=== PATIENT | male | born 1945 | race Caucasian/White ===

== ENCOUNTER → 2016-12-05 | Outpatient (CLI) | payer OTHER, MEDICARE | LOC: BHFA 09:15 | PROVIDERS: ATTEND Internal Medicine | DX: I35.9 Nonrheumatic aortic valve disorder, unspecified (principal) ==

== ENCOUNTER → 2016-12-13 | Outpatient (CLI) | payer OTHER, MEDICARE | LOC: BHFA 10:30 | PROVIDERS: ATTEND Internal Medicine Interventional Cardiology | DX: I25.10 Atherosclerotic heart disease of native coronary artery without angina pectoris (principal) ==

== ENCOUNTER 2017-05-02 14:49 | Emergency (ER) | payer OTHER, MEDICARE ==
[2017-05-02 15:04] VITALS: BP 171/85; PULSE 73; RESP 17; TEMP 97.9; O2SAT 98
== END 2017-05-02 16:00 | disposition left against medical advice (07) ==
DX: Z53.21 Procedure and treatment not carried out due to patient leaving prior to being seen by health care provider (principal)

== ENCOUNTER 2017-05-03 12:22 | Emergency (ER) | payer OTHER, MEDICARE ==
[2017-05-03 12:34] VITALS: BP 180/75; PULSE 75; RESP 18; TEMP 97.5; O2SAT 97
--- NOTE | 2017-05-03 13:07 | EDPHY ---
H & P Stated Complaint: Bleeding from abrasion x 2 days on tongue;on Coumadin Time Seen by Provider: 05/03/17 13:06 HPI/ROS: CHIEF COMPLAINT: Superficial laceration to long tongue, uncontrolled bleeding on Coumadin HISTORY OF PRESENT ILLNESS: The patient presents to the ED with a very superficial laceration to the anterior surface of his tongue. The patient is anticoagulated for an aortic valve replacement. The patient's INR was 3.5 yesterday. The patient has tried pressure to alleviate the bleeding but has been unable to. The patient denies any lightheadedness. He denies any additional complaints. REVIEW OF SYSTEMS: A comprehensive 10 point review of systems is otherwise negative aside from elements mentioned in the history of present illness. Source: Patient Exam Limitations: No limitations - Personal History Current Tetanus Diphtheria and Acellular Pertussis (TDAP): Yes - Medical/Surgical History Hx Asthma: No Hx Chronic Respiratory Disease: No Hx Diabetes: No Hx Cardiac Disease: Yes Hx Renal Disease: No Hx Cirrhosis: No Hx Alcoholism: No Hx HIV/AIDS: No Hx Splenectomy or Spleen Trauma: No Other PMH: PSH: thoracic aortic anerism repair; aortic valve replace;. PMH: denies - Social History Smoking Status: Never smoked - Physical Exam Exam: General Appearance: Alert, no distress Head: Atraumatic Eyes: Pupils equal, round, reactive ENT, Mouth: Very small area of bleeding secondary to bleeding vein versus small artery Neck: Nontender, trachea midline Constitutional: Initial Vital Signs Temperature (C) 36.4 C 05/03/17 12:30 Heart Rate 75 05/03/17 12:30 Respiratory Rate 18 05/03/17 12:30 Blood Pressure 180/75 H 05/03/17 12:30 O2 Sat (%) 97 05/03/17 12:30 O2 Delivery Mode Room Air Allergies/Adverse Reactions: No Known Allergies Allergy (Verified 05/03/17 12:30) Home Medications: Medication Instructions Recorded Coumadin 05/02/17 Simvastatin [Zocor] 40 mg PO 05/03/17 Medical Decision Making ED Course/Re-evaluation: The area of bleeding was infiltrated with lidocaine with epinephrine at 1:18 p.m.. I had the patient apply direct pressure for 5 minutes. Re-evaluated the patient at 1:34 p.m.: Pressure has been removed. Wound is currently hemostatic. Plan for observation. No recurrent bleeding in the emergency department. Plan will be to discharge patient home. In the event of rebleeding he should apply direct pressure for 15 minutes. If he continues to bleed he is advised to return to the emergency department where a pursestring suture may be indicated. Departure - Departure Disposition: Home, Routine, Self-Care Clinical Impression: Tongue laceration Condition: Good Additional Instructions: 1. In the event of rebleeding please apply direct pressure to the top and bottom surface of the tongue. 2. Return to the ED for any return uncontrolled bleeding. Referrals: Toni Pham MD [Primary Care Provider] - As per Instructions
== END 2017-05-03 13:54 | disposition home or self-care (01) ==
DX: S01.512A Laceration without foreign body of oral cavity, initial encounter (principal); X58.XXXA Exposure to other specified factors, initial encounter; Z79.01 Long term (current) use of anticoagulants

== ENCOUNTER 2017-06-29 14:00 | Inpatient (IN) | payer OTHER, MEDICARE ==
--- NOTE | 2017-06-29 14:47 | CPEKG ---
Heart Rate: 105 RR Interval: 571 P-R Interval: 184 QRSD Interval: 114 QT Interval: 352 QTC Interval: 466 P [place]: 68 QRS [place]: -28 T Wave [place]: 69 EKG Severity - ABNORMAL ECG - EKG Impression: SINUS TACHYCARDIA EKG Impression: PROBABLE LEFT ATRIAL ABNORMALITY EKG Impression: INCOMPLETE RBBB AND LAFB Electronically Signed By: Cuco Rico 29-Jun-2017 15:03:41
--- NOTE | 2017-06-29 14:47 | CPEKG ---
Heart Rate: 105 RR Interval: 571 P-R Interval: 184 QRSD Interval: 114 QT Interval: 352 QTC Interval: 466 P [place]: 68 QRS [place]: -28 T Wave [place]: 69 EKG Severity - ABNORMAL ECG - EKG Impression: SINUS TACHYCARDIA EKG Impression: PROBABLE LEFT ATRIAL ABNORMALITY EKG Impression: INCOMPLETE RBBB AND LAFB Electronically Signed By: Cuco Rico 29-Jun-2017 15:03:41
[2017-06-29 14:49] LABS: PLATELET COUNT 158 10^3/uL (150-400)
[2017-06-29 15:00] LABS: INR 2.86 (0.83-1.16); PROTIME(PATIENT) 30.4 SEC (12.0-15.0)
--- NOTE | 2017-06-29 15:02 | EDPHY ---
H & P Time Seen by Provider: 06/29/17 14:42 HPI/ROS: CHIEF COMPLAINT: Can't move or feel left leg HISTORY OF PRESENT ILLNESS: This 71-year-old man has a [place] aortic valve prosthesis 15 years ago and is on Coumadin with an INR of 5 yesterday. He noticed some bruising on his left thigh yesterday and saw his primary care physician. At 1:00 a.m. he woke to urinate and he said his legs went out from under him and he fell down after getting out of bed. He tells me that his left leg was acutely weak and numb, and he couldn't stand on it. He was essentially on the ground until early this afternoon he was able to crawl and get a hold of a neighbor and he was ultimately brought to the ER. Here he says that he has severe weakness in his left leg and numbness. Not associated with back pain or incontinence. Not associated with headache. He has a little bit of pain but denies severe pain in the left leg with movement. Symptoms all started at 1:00 a.m.. REVIEW OF SYSTEMS: Eye: no change in vision ENT: no sore throat Cardiac: no chest pain or syncope Pulmonary: no cough or SOB Abdomen: no vomiting, diarrhea, abdominal pain. No melena or red blood per rectum. No hematemesis or coffee-ground emesis. Musculoskeletal: HPI Skin: no rash Neuro: no headache Constitutional: no fever : no urinary symptoms A comprehensive 10 point review of systems is otherwise negative aside from elements mentioned in the history of present illness. PAST MEDICAL HISTORY: Aortic valve with [place] prosthesis, on Coumadin Social history: Lives alone General Appearance: Alert and conversant, cooperative. Eyes: No scleral icterus. ENT, Mouth: Normal mucous membranes. Respiratory: Normal respiratory effort, breath sounds equal, lungs are clear to auscultation. Cardiovascular: Regular rate and rhythm. 3/6 systolic murmur, normal dorsalis pedis pulses in both feet. Gastrointestinal: Abdomen is soft and non tender. Neurological: Alert and oriented x3. Normally conversant. Face symmetric, normal strength and sensation of both upper extremities. Sensation decreased in left leg to light touch but present. Right patellar reflexes 3+ and left patellar is 1+ to 0. Toes downgoing bilaterally with no clonus. He can flex is left knee and lift his left leg off the bed but is much weaker than on his right. He can stand on his left foot. He can plantar and dorsiflex but is weaker in both directions that he has on the right. Skin: Redness around the left knee and a bruise on the medial distal portion of his left thigh. No lacerations. Musculoskeletal: Left thigh is more swollen than the left but compartments are soft. He does not have pain on pelvic compression or spinal palpation or axial loading or rotation of either hip. Normal range of motion of left knee and ankle, I can range his knee and ankle and hip without causing pain. Psychiatric: Not agitated. Emergency Department course/MDM: Patient presents with leg weakness on Coumadin after fall. Differential extensive including but not limited to subdural, spinal epidural hematoma, muscular fracture, compartment syndrome, rhabdomyolysis. Patient has focal neurologic symptoms but is not made a stroke alert with onset greater than 12 hours prior to arrival, on Coumadin with elevated INR. Dissection or vascular occlusion considered but I think unlikely since his left foot is warm and is the same temperature as his right, and he has a normal dorsalis pedis pulse. Plan noncontrast head CT, labs to include INR and CPK, x-rays of the left lower extremity, MRI of lumbar spine if valve is compatible. 1613: Discussed with [facility] neurosurgery, per [facility] radiology no MRI at this time due to uncertainty about valve compatibility. 1626: Discussed with Dr. Ivey, neurology; do head and neck CTA. 1755: Negative CTA of head and neck per Dr. Zimmerman, no large vessel occlusion. 0: Per Nilam patient has severe canal stenosis with low L4-5 foraminal narrowing as well as the dorsal fat or blood in the lower thoracic spine region. 1920: Regina to admit. 0: Colleen reviewed films, case discussed, recommends no additional spine imaging, no emergent neurosurgical intervention. 2034: Still has dorsalis pedis pulse, without reason for decreased motor and sensory, and history of aortic dissection, will do angiography with runoff. 4: on CT has Hematoma left iliacus muscle per Erasmo; discussed with Mind[facility] admitting , and [place] at this time. Likely reason for anemia. Smoking Status: Never smoked Constitutional: Initial Vital Signs Temperature (C) 36.7 C 06/29/17 14:09 Heart Rate 107 H 06/29/17 14:09 Respiratory Rate 18 06/29/17 14:09 Blood Pressure 158/80 H 06/29/17 14:09 O2 Sat (%) 97 06/29/17 14:09 O2 Delivery Mode Room Air Allergies/Adverse Reactions: No Known Allergies Allergy (Verified 05/03/17 12:30) Home Medications: Medication Instructions Recorded ALPRAZolam [Xanax 1 MG (*)] 1 mg PO HS PRN 06/29/17 Herbals/Supplements -Info Only 1 ea PO DAILY 06/29/17 Simvastatin [Zocor] 20 mg PO HS 06/29/17 Tramadol HCl 50 mg PO Q6 PRN 06/29/17 Warfarin Sodium [Coumadin 5MG (*)] 15 mg PO MOTUWETHFRSA@21 06/29/17 Warfarin Sodium [Coumadin 5MG (*)] 17.5 mg PO LARSON@2100 06/29/17 Medical Decision Making - Diagnostics EKG Interpretation: 12-lead EKG interpreted by me; official reading is in trace master. My interpretation is sinus tachycardia with incomplete right bundle branch block and left anterior fascicular block rate 105. Differential Diagnosis: includes but not limited to SDH, stroke, dissection, epidural hematoma, peripheral neuropathy Consult/Admit Bed Type: [place] [id number] - Data Points Laboratory Results: Laboratory Results 06/29/17 14:36 06/29/17 14:36 06/29/17 19:00 Patient ABO/Rh O POSITIVE Antibody Screen NEGATIVE Medications Given: Alprazolam (Xanax) 1 mg PO HS PRN PRN Reason: Anxiety, Able to Take PO Stop: 12/26/17 23:36 Last Admin: 06/30/17 20:12 Dose: 1 mg Atorvastatin Calcium (Lipitor) 10 mg PO HS SANDRINE Stop: 12/27/17 20:59 Last Admin: 06/30/17 20:05 Dose: Not Given Sodium Chloride (Ns) 1,000 mls @ 150 mls/hr IV CONT SANDRINE Stop: 12/26/17 19:59 Last Admin: 06/29/17 20:33 Dose: 1,000 mls Discontinued Medications Sodium Chloride (Ns) 1,000 mls @ 3,000 mls/hr IV ONCE ONE Stop: 06/29/17 19:15 Last Admin: 06/29/17 19:25 Dose: 1,000 mls Departure - Departure Disposition: [facility] Clinical Impression: Left leg weakness, iliacus hematoma Rhabdomyolysis Qualifiers: Rhabdomyolysis type: traumatic Encounter type: initial encounter Qualified Code (s): T79.6XXA - Traumatic ischemia of muscle, initial encounter Condition: Fair
[2017-06-29 15:56] LABS: CREATINE KINASE 6268 IU/L (0-224)
[2017-06-29] MEDS ORDERED: IOPAMIDOL (ISOVUE 370) 100 ML BTL IV ONE ×4 (17:03→20:45)
[2017-06-29] MEDS ORDERED: NS 1,000 ML IV ONE ×2 (18:56)
[2017-06-29] MEDS ORDERED: NS 1,000 ML IV SCH ×4 (20:00→22:45)
[2017-06-29] MEDS ORDERED: ONDANSETRON DISINTEGRATING 4 MG TAB PO PRN ×2 (22:38)
[2017-06-29] MEDS ORDERED: diphenhydrAMINE 25 MG CAP PO PRN ×2 (22:38)
[2017-06-29] MEDS ORDERED: ONDANSETRON 4 MG/2 ML VIAL IVP PRN ×2 (22:38)
[2017-06-29] MEDS ORDERED: HYDROCODONE/APAP 5/325 TAB PO PRN ×2 (22:38)
[2017-06-29] MEDS ORDERED: ACETAMINOPHEN 325 MG TAB PO PRN ×2 (22:38)
[2017-06-29] MEDS ORDERED: LORazepam 0.5 MG TAB PO PRN ×2 (22:38)
--- NOTE | 2017-06-29 23:40 | SOAPPROG ---
SOAP Progress Note Assessment/Plan: Assessment: 71-YEAR-OLD MALE WITH SPONTANEOUS LEFT ILIACUS RETROPERITONEAL HEMATOMA SECONDARY TO ELEVATED INR / PATIENT ON COUMADIN FOR AORTIC VALVE REPLACEMENT HE WAS SEEN BY HIS PCP AND THOUGHT THAT OF A MUSCLE TEAR EARLIER IN THE WEEK BUT HAS GOTTEN PROGRESSIVELY WEAKER IN HIS LEFT LEG UNTIL LAST NIGHT HE COLLAPSED TRYING TO WALK NO OTHER SIGNS OF INJURY OR NO HISTORY OF TRAUMA EXAM THE HEALTHY 71-YEAR-OLD MALE NO ACUTE DISTRESS HEENT WITHOUT EVIDENCE OF TRAUMA CHEST CLEAR AND SYMMETRIC AND NONTENDER COR REGULAR RHYTHM ABDOMEN SOFT BOWEL SOUNDS BUT A PALPABLE MASS IN THE LEFT LOWER QUADRANT /NO HERNIAS GENITALIA NORMAL EXTREMITIES FULL PULSES AND FULL RANGE OF MOTION FOR ALL EXTREMITIES EXCEPT THE LEFT THIGH WHICH IS WEAK NEURO EXAM IS SYMMETRIC AND PHYSIOLOGIC EXCEPT FOR 4+ OUT OF 5 HIP FLEXOR STRENGTH ON THE LEFT PSYCH EXAM IS ALERT ORIENTED AND COOPERATIVE IMPRESSION: RETROPERITONEAL HEMATOMA CAUSING PAIN IN HIS PSOAS MUSCLE AND POSSIBLE FEMORAL NERVE COMPRESSION Plan: INR REVERSAL AND IF NOT IMPROVED HE MAY NEED RETROPERITONEAL HEMATOMA DRAINAGE TO RELIEVE POSSIBLE FEMORAL NERVE COMPRESSION / PT CONSULT 06/29/17 23:35 Objective: Vital Signs Temp Pulse Resp BP Pulse Ox 36.8 C 107 H 12 157/83 H 96 06/29/17 22:09 06/29/17 22:09 06/29/17 22:09 06/29/17 22:09 06/29/17 22:09 06/28/17 06/29/17 06/30/17 05:59 05:59 05:59 Intake Total 1200 Balance 1200 PT 30.4 SEC (12.0-15.0) H 06/29/17 14:36 INR 2.86 (0.83-1.16) H 06/29/17 14:36 ICD10 Worksheet Patient Problems: Problems Problem Status Onset Left leg weakness Acute Rhabdomyolysis Acute
--- NOTE | 2017-06-30 00:04 | PDGENHP ---
History and Physical - Chief Complaint left leg weakness/pain - History of Present Illness Source - patient provides history and appears reliable. HPI - Pleasant 71 yo M with pmhx significant for chronic anticoagulation on coumadin s/p St Nasir's artificial valve, HLD, neuropathy who presents to the ED today with complaints of left leg weakness and pain. Patient reports 2 days ago he noted some swelling/bruising left leg with worsening intensity. He reports visiting with PCP and was diagnosis with muscle strain and hematoma. Patient INR at that time was also reported to be elevated to > 5. Patient states last night approximately 0100 he ambulated to bathroom and turned around to walk back to bed when his knees buckled and he had significant weakness in left leg. Patient subsequently could not support himself and fell to the ground. He had significantly limited mobility and was not able to stand/ ambulation so laid on the ground for several hours until later this afternoon/ evening. Patient was finally able to mobilize to phone to call neighbor for help. Patient still with pain with movement but not as severe. PAtient denies any recent injuries prior to onset of left leg pain. Patient denies any COLEY, other focal deficits, back pain, incontinence/retention. hx of reported neuropathy lower extremities but no noted changes from baseline. History Information - Allergies/Home Medication List Allergies/Adverse Reactions: No Known Allergies Allergy (Verified 05/03/17 12:30) Home Medications: ALPRAZolam [Xanax 1 MG (*)] 1 mg PO HS PRN 06/29/17 [Last Taken 06/28/17] Herbals/Supplements -Info Only 1 ea PO DAILY 06/29/17 [Last Taken Unknown] Simvastatin [Zocor] 20 mg PO HS 06/29/17 [Last Taken 06/28/17] Tramadol HCl 50 mg PO Q6 PRN 06/29/17 [Last Taken 06/28/17] Warfarin Sodium [Coumadin 5MG (*)] 15 mg PO MOTUWETHFRSA@21 06/29/17 [Last Taken 06/28/17] Warfarin Sodium [Coumadin 5MG (*)] 17.5 mg PO LARSON@2100 06/29/17 [Last Taken 06/25] I have personally reviewed and updated: family history, medical history, social history, surgical history - Past Medical History hyperlipidemia Additional medical history: HLD. insomnia. thoracic aortic aneursysm s/p repair. 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 neuropathy - Surgical History Reports: hernia repair Additional surgical history: Aortic valve repair - Family History Additional family history: father with CHF - Social History Smoking Status: Never smoked Alcohol Use: Occasionally Drug Use: None Additional social history: Lives alone. retired and previously healthcare appliance repair technician/wire fence builder. Review of Systems Review of Systems: ROS: 10pt was reviewed & negative except for what was stated in HPI & below Constitutional: Denies: chills, fever, weight loss EENMT: Reports: no symptoms. Denies: blurred vision, eye pain, nose congestion , sore throat Cardiac: Reports: edema (left proximal leg). Denies: no symptoms, chest pain, lightheadedness, palpitations Respiratory: Reports: no symptoms. Denies: cough, orthopnea, shortness of breath Gastrointestinal: Reports: abdominal distention, constipation. Denies: vomitting, rectal bleeding, diarrhea, nausea Genitourinary: Denies: dysuria, hematuria Muscolosketal: Reports: muscle pain (left leg). Denies: back pain, joint pain Neurological: Reports: anxiety, numbness, weakness. Denies: depressed, tremors Hematologic/Lymphatic: Reports: easy bruising. Denies: blood clots Physical Exam Physical Exam: Temp Pulse Resp BP Pulse Ox 36.8 C 107 H 12 157/83 H 96 06/29/17 22:09 06/29/17 22:09 06/29/17 22:09 06/29/17 22:09 06/29/17 22:09 Constitutional: no apparent distress, uncomfortable (with movement of left leg only otherwise appears comfortable resting in bed. ), No obese Eyes: PERRL, EOMI, No icteric sclera, No scleral injection Ears, Nose, Mouth, Throat: moist mucous membranes, ears appear normal, No poor dentition Cardiovascular: regular rate and rhythym, systolic murmur, other (valve click) Peripheral Pulses: 1+: dorsalis-pedis (R), dorsalis-pedis (L) Respiratory: no respiratory distress, clear to auscultation Gastrointestinal: normoactive bowel sounds, soft, non-tender abdomen, other ( LLQ soft raised mass. TTP mild palpation. ), No guarding, No rebound, No distension Genitourinary: No no bladder fullness, No no bladder tenderness, No mason in urethra Skin: warm, No normal color, No mottled Musculoskeletal: other (left proximal leg is swollen compared to right. bruising mid LE.) Neurologic: AAOx3, weakness (left leg and pt declines evaluation 2/2 significance of pain. ) Psychiatric: interacting appropriately, not anxious, not encephalopathic, No anxious, No depressed Lab Data & Imaging Review 06/30/17 04:20 06/30/17 04:20 WBC 12.63 10^3/uL (3.80-9.50) H 06/29/17 14:36 RBC 3.18 10^6/uL (4.40-6.38) L 06/29/17 14:36 Hgb 11.4 g/dL (13.7-17.5) L 06/29/17 14:36 Hct 32.3 % (40.0-51.0) L 06/29/17 14:36 MCV 101.6 fL (81.5-99.8) H 06/29/17 14:36 MCH 35.8 pg (27.9-34.1) H 06/29/17 14:36 MCHC 35.3 g/dL (32.4-36.7) 06/29/17 14:36 RDW 12.8 % (11.5-15.2) 06/29/17 14:36 Plt Count 158 10^3/uL (150-400) 06/29/17 14:36 MPV 9.7 fL (8.7-11.7) 06/29/17 14:36 Neut % (Auto) 79.0 % (39.3-74.2) H 06/29/17 14:36 Lymph % (Auto) 7.8 % (15.0-45.0) L 06/29/17 14:36 Weber % (Auto) 12.6 % (4.5-13.0) 06/29/17 14:36 Eos % (Auto) 0.0 % (0.6-7.6) L 06/29/17 14:36 Baso % (Auto) 0.2 % (0.3-1.7) L 06/29/17 14:36 Nucleat RBC Rel Count 0.0 % (0.0-0.2) 06/29/17 14:36 Absolute Neuts (auto) 9.97 10^3/uL (1.70-6.50) H 06/29/17 14:36 Absolute Lymphs (auto) 0.99 10^3/uL (1.00-3.00) L 06/29/17 14:36 Absolute Monos (auto) 1.59 10^3/uL (0.30-0.80) H 06/29/17 14:36 Absolute Eos (auto) 0.00 10^3/uL (0.03-0.40) L 06/29/17 14:36 Absolute Basos (auto) 0.03 10^3/uL (0.02-0.10) 06/29/17 14:36 Absolute Nucleated RBC 0.00 10^3/uL (0-0.01) 06/29/17 14:36 Immature Gran % 0.4 % (0.0-1.1) 06/29/17 14:36 Immature Gran # 0.05 10^3/uL (0.00-0.10) 06/29/17 14:36 PT 30.4 SEC (12.0-15.0) H 06/29/17 14:36 INR 2.86 (0.83-1.16) H 06/29/17 14:36 Sodium 141 mEq/L (134-144) 06/29/17 14:36 Potassium 4.1 mEq/L (3.5-5.2) 06/29/17 14:36 Chloride 103 mEq/L (97-110) 06/29/17 14:36 Carbon Dioxide 26 mEq/l (22-31) 06/29/17 14:36 Anion Gap 12 mEq/L (8-16) 06/29/17 14:36 BUN 20 mg/dL (7-23) 06/29/17 14:36 Creatinine 0.7 mg/dL (0.7-1.3) 06/29/17 14:36 Estimated GFR > 60 06/29/17 14:36 Glucose 100 mg/dL (70-100) 06/29/17 14:36 Calcium 9.6 mg/dL (8.5-10.4) 06/29/17 14:36 Creatine Kinase 6268 IU/L (0-224) H 06/29/17 14:36 CK-MB (CK-2) Fraction 37.40 ng/mL (0.00-4.55) H 06/29/17 14:36 CK-MB (CK-2) % 0.6 % (0.0-4.0) 06/29/17 14:36 Creatine Kinase Interp NEGATIVE (NEGATIVE) 06/29/17 14:36 Patient ABO/Rh O POSITIVE 06/29/17 19:00 Antibody Screen NEGATIVE 06/29/17 19:00 Imaging Review: femur xray - nothing acute knee xray - nothing acute. vascular calcifications, chronic knee changes. pelvis xray - nothing acute CTA chest - neg PE/dissection. left pleural thickening/scarring. MRI Of the Thoracic and Lumbar Spine History: Left leg weakness, patient on Coumadin, patient has a heart valve, Technique: Dr. Portillo protocoled this study to limited scan time since the details of the hard valve or not known. Sagittal localizer images through the cervical and thoracic region. Sagittal T1 and T2 sequences through the cervical thoracic and thoracolumbar spine. Axial T2 images through the thoracic and lumbar region. There is patient motion on this study, which was repeated. Findings: On axial T2 images there is a small amount of the bright dorsal fluid , posterior to the thecal sac, between T3 and T12. Also, in the mid lumbar spine the nerve roots appear to be centrally clustered. No intrinsic cord abnormality is identified. The conus medullaris occurs at L1-L2. There is bright dorsal epidural signal on T1 and T2- weighted images between T1 and L1, that likely represents dorsal epidural fat, although subacute blood could have a similar appearance. CSF surrounds the cord at all levels. There is degenerative cervical disk disease between C4 and T1, T2-T3, L1-L2 and between L3 and L5. There is severe central neural canal stenosis at L4-L5. There is mild ventral indentation on the cord at C5-C6. A small amount of CSF remains behind the cervical cord at all levels. CSF surrounds the thoracic cord at all levels. There is at least moderate left foraminal stenosis at L3-L4 and L4-L5 related to facet hypertrophy and disk material in the lower portion of the foramen. Impression: Limited study . Difficult to exclude epidural hematoma, however if present it does not appear to be causing cord compression. Epidural fat could have a similar appearance. There is scattered degenerative change with severe central canal stenosis at L4-L5 where there is also left greater than right foraminal stenosis. Axial contrast CT through the thoracic and lumbar spine would be helpful to differentiate fat from hemorrhage. Results discussed with Dr. Nolberto Taveras at 7:10 PM Dictated By: Arben Demarco MD *This report was compiled using a voice recognition dictation system and may contain typographical errors* 50 T: PSCRIBE 06/29/171850 Electronically Signed by: Arben Demarco MD 06/29/171911 CC: Toni Pham MD; NOLBERTO TAVERAS S~ ___ CT Angiography of the Abdomen and Pelvis, With Bilateral Lower Extremity Runoff Angiogram Indication: Left leg weakness. Comparison: None. Technique: 1.25-mm thin axial images are performed from the lung bases to the ankles during intravenous contrast injection of 120 mL of Isovue 370. Coronal and parasagittal reformatted images are reviewed on a separate workstation. Dose reduction techniques were utilized. Findings CT Angiogram of the Abdomen and Pelvis: Lung bases are clear. Visualized abdominal and pelvic vessels are normal without dissection. No ulceration, aneurysm, or stenosis. Celiac trunk, SMA are widely patent. Single bilateral renal arteries are widely patent. Mesenteric branches are also patent. Runoff angiogram: There is mild SFA disease bilaterally, left worse than right. There is mild bilateral common femoral artery disease with minimal luminal stenosis. The SFA disease on the left maximally contributes to 50% luminal stenosis at the mid thigh. On the right, it contributes maximally to 30- 40% luminal stenosis. Bilateral SFA are laden with calcifications. Patient has three-vessel runoff to ankles bilaterally. There is in-line flow through patent popliteal arteries. CT Abdomen and Pelvis: Liver, spleen, and pancreas enhance normally. Both kidneys enhance and excrete normally. No stones in the gallbladder. Large and small bowels are normal. There is free fluid in the pelvis with increased density measuring up in the mid 40s to low 50s. This is consistent with blood products or hemoperitoneum. There is a significant amount of inflammatory process at the left flank region. There is significant enlargement of the left iliacus muscle, which measures 10 x 7 cm at the level of the iliac wing. It displaces the psoas muscle medially. This mass extension goes into the proximal anterior thigh, stops at the mid thigh. There is associated subcutaneous stranding throughout the proximal thigh, dissecting along the the femoral vasculature plane as well, and also superiorly along the retroperitoneum up to the level of the spleen and the left kidney. There are areas of low density within the iliacus muscle. Overall, even on delayed imaging, this area does not enhance significantly. Primary differential is a large hematoma with differential levels of bleeding. Impressions: 1. No dissection. 2. Bilateral SFA laden with atherosclerotic calcification, up to 30-40% stenosis on the right, and up to 50% stenosis on the left segmentally above the knee. Visualized and Interpreted Chest x-ray results: Yes EKG additional interpertation: sinus tachycardia 100s. incomplete RBBB/LAFB. no acute ST changes. QTc 466. Assessment & Plan Assessment: Pleasant 71 yo M with hx St. Nasir's valve on chronic anticoagulation now with left leg pain/weakness. #left iliacus hematoma with displacement psoas - reversal INR with ffp. hold off on vit k for now as correction patient requires anticoagulation for artifical valve. case discussed with Dr. Bojorquez. will monitor overnight. may require evacuation. npo after midnight. #retroperitoneal hematoma - as above. #supratherapeutic inr reported yesterday 5.0 now 2.86. monitor PT inr after ffp goal <1.5 if surgery needed. #acte blood loss anemia - BPs acceptable at this time. monitor h/h. transfuse for H/H <7/21. #Left leg weakness (Acute) - improved slightly. pt was able to ambulate with walker. possible evacuation tomorrow after reversal as per surgery. #L leg pain - improved. prn morphine, norco, ativan. #Rhabdomyolysis (Acute) - related to falls, hematoma as above. monitor ck and renal function. IVF. #HLD - holding statin in setting of rhabdo. #insomnia - xanax prn at hs. #spinal stenosis - neurosurgery consulted from ED will see pt in AM. FEN - IVF overnight. npo after midnight. electrolyte replacement prn. PPX - inr therapeutic receiving ffp. scds if tolerated. COR - FULL. pt desires friend Nacny Long to act as proxy if needed. Dispo - Admit to inpatient status. given severity of hematoma/anemia patient requires close hospital monitoring and anticipate > 2 midnight stay.
[2017-06-30] MEDS: ALPRAZolam 1 MG TAB PO PRN ×4 (00:22→20:12)
[2017-06-30 02:20] LABS: INR 1.98 (0.83-1.16); PROTIME(PATIENT) 22.6 SEC (12.0-15.0)
[2017-06-30 05:13] LABS: INR 1.79 (0.83-1.16); PROTIME(PATIENT) 20.9 SEC (12.0-15.0)
[2017-06-30 05:21] LABS: PLATELET COUNT 133 10^3/uL (150-400)
[2017-06-30 05:34] LABS: CREATINE KINASE 2940 IU/L (0-224)
[2017-06-30 08:42] LABS: INR 1.58 (0.83-1.16); PROTIME(PATIENT) 18.9 SEC (12.0-15.0)
[2017-06-30] MEDS ORDERED: ALPRAZolam 1 MG TAB PO PRN ×2 (09:21)
[2017-06-30] MEDS ORDERED: traMADol 50 MG TAB PO PRN ×2 (09:21)
[2017-06-30] MEDS ORDERED: Herbals/Supplements -Info Only PO SCH ×2 (09:30)
--- NOTE | 2017-06-30 09:53 | GCON ---
[f rep st] CONSULTATION DATE OF CONSULTATION: 06/30/2017 REASON FOR CONSULTATION: Left lower extremity weakness. HISTORY OF PRESENT ILLNESS: The patient is a 71-year-old gentleman who presented to the emergency room yesterday with weakness in his left leg. He is on Coumadin for the last 15 years for his aortic valve prosthesis. He was noted to have an INR of 5 yesterday. He did notice some bruising and swelling in his left thigh when he had seen his primary care physician. He woke up in the middle of the night, and he was unable to urinate, and said that his leg was continuously giving out from him. Since he has been admitted to the hospital, he has noticed that the strength in his left leg has began to improve. He denies any back pain or any incontinence. REVIEW OF SYSTEMS: Negative other than what is stated in the HPI. Please see pertinent negatives, pertinent positives. PAST MEDICAL HISTORY: Significant for aortic valve replacement. He does take Coumadin for this. He does have a history also of insomnia, thoracic aortic aneurysm repair, history of a hernia repair. FAMILY HISTORY: His father has a history of CHF. SOCIAL HISTORY: The patient is a retired EMT/digital hardware design engineer. He has never smoked , and he drinks an occasional alcoholic beverage. ALLERGIES: No known drug allergies. MEDICATIONS: Xanax 1 mg 1 p.o. at bedtime, Zocor 20 mg 1 p.o. at bedtime, tramadol 50 mg 1 p.o. q.6 hours p.r.n. pain, and Coumadin 5 mg as directed per his physician. PHYSICAL EXAM: VITALS: BP is 115/60, heart rate is 91, his temp is 37.1, he is 93% on room air. GENERAL: The patient is in no acute distress. He is alert and oriented x3. Answers questions appropriately. His affect is appropriate given the situation. NEURO: Cranial nerves 2-12 are grossly intact. EOMI and PERRLA. EXTREMITIES: The patient is 5/5 and equal in his bilateral upper extremities including his deltoids, triceps, biceps, wrist flexors, extensors, interossei, intrinsic, assistant wrestling coach, iliopsoas, hamstrings, quadriceps, plantar flexion, dorsiflexion and EHL, with the exception of the patient's left iliopsoas being a 3+/5. LABORATORY DATA: The patient underwent a thoracic spine MRI, which did not demonstrate any cord compression. There is evidence of scattered degenerative changes with canal stenosis at L4-5 with left greater than right foraminal stenosis. ASSESSMENT/PLAN: The patient is a 71-year-old gentleman who presented to the emergency room with left lower extremity weakness. He was found to have a psoas hematoma, as well as having some degenerative changes and stenosis at L4-5. He was evaluated both by Dr. Macias and myself this morning. His strength has improved in his left leg. The location of his weakness and his iliopsoas is likely from the psoas hematoma. He does not have any back pain. At this point in time, we defer to Medicine with treatment of his supratherapeutic INR. We have discussed with the patient the degenerative changes noted in his lower back, and if he continues to have low back pain or continued leg numbness, tingling, pain or weakness, he can follow up in our clinic as an outpatient in approximately 2-4 weeks. There is no acute neurosurgical intervention that we recommend at this time. If the patient develops any new or worsening symptoms, please contact Neurosurgery. /[id number]/MODL MTDD
--- NOTE | 2017-06-30 10:16 | PDMN ---
Medical Necessity Medical necessity: est los>2mn for L iliacus hematoma w/displacement psoas, s/p fall, with INR 5.0 06/28/17, rhabdomyolysis s/p several hours on floor, acute blood loss anemia, LLE pain and weakness; requires NS consult, possible need for surgical evacuation of hematoma; hx HLD on statin, AVR, AAA repair on chronic AC; per order and H&P 06/29/17
[2017-06-30 15:39] LABS: INR 1.53 (0.83-1.16); PROTIME(PATIENT) 18.4 SEC (12.0-15.0)
--- NOTE | 2017-06-30 16:09 | ASMTCMCOM ---
CM Note CM Note Notes: Pt admitted for left leg hematoma as well as supratherapeutic INR. Pt's DC needs currently TBD. PT is recommending SNF and OT is recommending SNF vs HC. C/M will continue to follow. Date Signed: 06/30/2017 04:09 PM Electronically Signed By:Stephanie Luna LCSW
--- NOTE | 2017-06-30 17:04 | HOSPPROG ---
Hospitalist Progress Note Assessment/Plan: Assessment: 71 yo M with hx St. Nasir's valve on chronic anticoagulation p/w acute left iliacus hematoma and suspected femoral nerve compression Plan: #left iliacus and retroperitoneal hematoma with displacement psoas. acute, likely spontaneous in setting of supratherapeutic INR - s/p FFP, INR reversed safely - monitor daily INR, hold coumadin - hold on surgical intervention per patient request, monitor paresis progress w / PT - counseled patient that if worsening paresis 2/2 suspected femoral nerve compression, then patient should be made NPO and surgery should be recommended for evacuation #supratherapeutic inr. 2/2 chronic coumadin for mechanical AVR - d/w Dr. Bullard, recommends patient be off anticoagulation for 3-6 days and begin receiving ASA in the interim when patient's bleeding as definitively stabilized #acte blood loss anemia. evidenced by Hgb 11.4->8.1, holding on transfusion at this time, but will repeat Hgb level this afternoon and transfuse Hgb<7 or hypotensive #suspected L femoral nerve compression. acute, 2/2 hematoma, MRI back w/o spinal canal bleed, CTA head/neck w/o stenosis, CT runoff w/o significant stenosis (50% on left) and no dissection - monitor paresis LLE, engage w/ PT today #rhabdomyolysis. acute, 2/2 falls, cont to monitor #HLD. chronic, holding statin in setting of rhabdo. #spinal stenosis. nsgy consult appreciated, no chord compression Diet. Regular PPx. High risk, SCDs Code. Full, desires friend Nancy Long to act as proxy if needed Dispo. ADD uncertain, pending possible surgery Subjective: mild pain LLE and ongoing paresis Objective: Vital Signs Temp Pulse Resp BP Pulse Ox 37.1 C 75 18 116/56 L 96 06/30/17 15:26 06/30/17 15:26 06/30/17 15:26 06/30/17 15:26 06/30/17 15:26 Laboratory Results 06/30/17 14:46 06/30/17 04:20 06/29/17 06/30/17 07/01/17 05:59 05:59 05:59 Intake Total 2650 350 Output Total 450 Balance 2200 350 PT 18.4 SEC (12.0-15.0) H 06/30/17 14:46 INR 1.53 (0.83-1.16) H 06/30/17 14:46 - Time Spent With Patient Time Spent with Patient: greater than 35 minutes Time Spent with Patient: Greater than 35 minutes spent on this patients care, greater than 50% of time spent counseling, educating, and coordinating care regarding the above mentioned plan. - Physical Exam Constitutional: no apparent distress, appears nourished, not in pain Cardiovascular: systolic murmur (II/ at RSB), edema (trace LLE), other ( closing click RSB), No tachycardia Respiratory: no respiratory distress, no rales or rhonchi, clear to auscultation Gastrointestinal: normoactive bowel sounds, soft, non-tender abdomen, no palpable masses Skin: other (minimal soft tissue edema, minimal medial ecchymoses, mild tenderness, no streaking) Neurologic: AAOx3, sensation intact bilaterally, weakness (3/5 motor LLE at hip flexion, 5/5 motor RLE) Psychiatric: interacting appropriately, not anxious, not encephalopathic, thought process linear ICD10 Worksheet Patient Problems: Problems Problem Status Onset Rhabdomyolysis Acute Left leg weakness Acute
[2017-06-30] MEDS: ATORVASTATIN CALCIUM 10 MG TAB PO SCH ×4 (20:02→20:05)
[2017-06-30] MEDS ORDERED: NON-FORMULARY NEW DRUG (Simvastatin [Zocor] 20 MG) PO SCH ×2 (21:00)
[2017-07-01 06:18] LABS: INR 1.55 (0.83-1.16); PROTIME(PATIENT) 18.6 SEC (12.0-15.0)
--- NOTE | 2017-07-01 09:20 | HOSPPROG ---
Hospitalist Progress Note Assessment/Plan: Assessment: 71 yo M with hx St. Nasir's valve on chronic anticoagulation p/w acute left iliacus hematoma and suspected femoral nerve compression Plan: #left iliacus and retroperitoneal hematoma with displacement of psoas. This is likely spontaneous in setting of supratherapeutic INR. He did have a fall, but that was due to sudden LLE weakness. - s/p FFP, INR reversed safely- currently 1.5 - monitor daily INR, cont to hold coumadin - neurosurgery following, no surgery planned at this time #supratherapeutic inr. 2/2 chronic coumadin for mechanical AVR - d/w Dr. Bullard, recommends patient be off anticoagulation for 3-6 days and begin receiving ASA in the interim when patient's bleeding as definitively stabilized #acute blood loss anemia. Hgb 11.4->9, holding on transfusion at this time - continue to follow H&H #LLE weakness likely 2/2 L femoral nerve compression in setting of hematoma, MRI back w/o spinal canal bleed, CTA head/neck w/o stenosis, CT runoff w/o significant stenosis (50% on left) and no dissection. Spinal stenosis of L4-5 noted. - monitor paresis LLE, engage w/ PT today - outpt neurosurgery f/u if weakness persists in setting of spinal stenosis #rhabdomyolysis. acute, 2/2 falls and hematoma, cont to monitor #HLD. chronic, holding statin in setting of rhabdo. #spinal stenosis. nsgy consult appreciated, no cord compression Diet. Regular PPx. High risk, SCDs Code. Full, desires friend Nancy Long to act as proxy if needed Dispo. Cont inpt Subjective: Pt feels well. He is ambulating. States LLE strength is improved. He is able to lift his leg today. No abdominal pain. Overall, pain controlled. He is keen to go home soon. No CP or SOB. Objective: Vital Signs Temp Pulse Resp BP Pulse Ox 37.4 C 92 16 117/60 92 07/01/17 08:00 07/01/17 08:00 07/01/17 08:00 07/01/17 08:00 07/01/17 08:00 Laboratory Results 07/01/17 04:18 07/01/17 04:18 06/30/17 07/01/17 07/02/17 05:59 05:59 04:59 Intake Total 2650 350 Output Total 450 300 Balance 2200 50 PT 18.6 SEC (12.0-15.0) H 07/01/17 04:18 INR 1.55 (0.83-1.16) H 07/01/17 04:18 - Physical Exam Constitutional: no apparent distress Eyes: PERRL Ears, Nose, Mouth, Throat: moist mucous membranes Cardiovascular: regular rate and rhythym Respiratory: no respiratory distress, clear to auscultation Gastrointestinal: normoactive bowel sounds, soft, non-tender abdomen Skin: warm Musculoskeletal: other (LLE with notable hematoma of anterior quad ) Neurologic: AAOx3 Psychiatric: interacting appropriately ICD10 Worksheet Patient Problems: Problems Problem Status Onset Left leg weakness Acute Rhabdomyolysis Acute
--- NOTE | 2017-07-01 10:55 | SOAPPROG ---
TAHIRA Progress Note Assessment/Plan: Assessment: 71-YEAR-OLD MALE WITH SPONTANEOUS LEFT ILIACUS RETROPERITONEAL HEMATOMA SECONDARY TO ELEVATED INR / PATIENT ON COUMADIN FOR AORTIC VALVE REPLACEMENT HE WAS SEEN BY HIS PCP AND THOUGHT THAT OF A MUSCLE TEAR EARLIER IN THE WEEK BUT HAS GOTTEN PROGRESSIVELY WEAKER IN HIS LEFT LEG UNTIL LAST NIGHT HE COLLAPSED TRYING TO WALK NO OTHER SIGNS OF INJURY OR NO HISTORY OF TRAUMA EXAM THE HEALTHY 71-YEAR-OLD MALE NO ACUTE DISTRESS HEENT WITHOUT EVIDENCE OF TRAUMA CHEST CLEAR AND SYMMETRIC AND NONTENDER COR REGULAR RHYTHM ABDOMEN SOFT BOWEL SOUNDS BUT A PALPABLE MASS IN THE LEFT LOWER QUADRANT /NO HERNIAS GENITALIA NORMAL EXTREMITIES FULL PULSES AND FULL RANGE OF MOTION FOR ALL EXTREMITIES EXCEPT THE LEFT THIGH WHICH IS WEAK NEURO EXAM IS SYMMETRIC AND PHYSIOLOGIC EXCEPT FOR 4+ OUT OF 5 HIP FLEXOR STRENGTH ON THE LEFT PSYCH EXAM IS ALERT ORIENTED AND COOPERATIVE IMPRESSION: RETROPERITONEAL HEMATOMA CAUSING PAIN IN HIS PSOAS MUSCLE AND POSSIBLE FEMORAL NERVE COMPRESSION Plan: INR REVERSAL AND IF NOT IMPROVED HE MAY NEED RETROPERITONEAL HEMATOMA DRAINAGE TO RELIEVE POSSIBLE FEMORAL NERVE COMPRESSION / PT CONSULT 06/29/17 23:35 07/01/17 10:51 PT WITH LARGE RETROPERITONEAL HEMATOMA, STABLE/ HCT STABLE THIGH STILL VERY WEAK/ ABLE TO AMBULATE WITH CANE OR WALKER MAY NEED DRAINAGE FOR FEMORAL NERVE COMPRESSION ? Objective: Vital Signs Temp Pulse Resp BP Pulse Ox 37.4 C 92 16 117/60 92 07/01/17 08:00 07/01/17 08:00 07/01/17 08:00 07/01/17 08:00 07/01/17 08:00 Laboratory Results 07/01/17 04:18 07/01/17 04:18 06/30/17 07/01/17 07/02/17 05:59 05:59 04:59 Intake Total 2650 350 Output Total 450 300 Balance 2200 50 PT 18.6 SEC (12.0-15.0) H 07/01/17 04:18 INR 1.55 (0.83-1.16) H 07/01/17 04:18 ICD10 Worksheet Patient Problems: Problems Problem Status Onset Left leg weakness Acute Rhabdomyolysis Acute
--- NOTE | 2017-07-01 12:59 | ASMTCMCOM ---
CM Note CM Note Notes: Met w/pt to discuss dc poc. He states he feels much better in his mobility today. He said he is not interested in SNF since he is feeling better and he has his dog at home to care for. He is open to [facility], discussed Medicare homebound restricitions. He would like to use [facility]; notified Devin at [facility], [employer] referral sent. Pt may dc home tomorrow. He does live alone, says he has neighbors he can call if needed. MEREDITH w/f. Date Signed: 07/01/2017 12:58 PM Electronically Signed By:Annamarie Marin RN
--- NOTE | 2017-07-01 12:59 | ASMTCMCOM ---
CM Note CM Note Notes: Met w/pt to discuss dc poc. He states he feels much better in his mobility today. He said he is not interested in SNF since he is feeling better and he has his dog at home to care for. He is open to [facility], discussed Medicare homebound restricitions. He would like to use [facility]; notified Devin at [facility], [employer] referral sent. Pt may dc home tomorrow. He does live alone, says he has neighbors he can call if needed. MEREDITH w/f. Date Signed: 07/01/2017 12:58 PM Electronically Signed By:Annamarie Marin RN
--- NOTE | 2017-07-01 12:59 | ASMTCMCOM ---
CM Note CM Note Notes: Met w/pt to discuss dc poc. He states he feels much better in his mobility today. He said he is not interested in SNF since he is feeling better and he has his dog at home to care for. He is open to [facility], discussed Medicare homebound restricitions. He would like to use [facility]; notified Devin at [facility], [employer] referral sent. Pt may dc home tomorrow. He does live alone, says he has neighbors he can call if needed. MEREDITH w/f. Date Signed: 07/01/2017 12:58 PM Electronically Signed By:Annamarie Marin RN
[2017-07-01] MEDS: ATORVASTATIN CALCIUM 10 MG TAB PO SCH ×2 (20:05)
--- NOTE | 2017-07-01 20:29 | SOAPPROG ---
TAHIRA Progress Note Assessment/Plan: Assessment: 71-YEAR-OLD MALE WITH SPONTANEOUS LEFT ILIACUS RETROPERITONEAL HEMATOMA SECONDARY TO ELEVATED INR / PATIENT ON COUMADIN FOR AORTIC VALVE REPLACEMENT HE WAS SEEN BY HIS PCP AND THOUGHT THAT OF A MUSCLE TEAR EARLIER IN THE WEEK BUT HAS GOTTEN PROGRESSIVELY WEAKER IN HIS LEFT LEG UNTIL LAST NIGHT HE COLLAPSED TRYING TO WALK NO OTHER SIGNS OF INJURY OR NO HISTORY OF TRAUMA EXAM THE HEALTHY 71-YEAR-OLD MALE NO ACUTE DISTRESS HEENT WITHOUT EVIDENCE OF TRAUMA CHEST CLEAR AND SYMMETRIC AND NONTENDER COR REGULAR RHYTHM ABDOMEN SOFT BOWEL SOUNDS BUT A PALPABLE MASS IN THE LEFT LOWER QUADRANT /NO HERNIAS GENITALIA NORMAL EXTREMITIES FULL PULSES AND FULL RANGE OF MOTION FOR ALL EXTREMITIES EXCEPT THE LEFT THIGH WHICH IS WEAK NEURO EXAM IS SYMMETRIC AND PHYSIOLOGIC EXCEPT FOR 4+ OUT OF 5 HIP FLEXOR STRENGTH ON THE LEFT PSYCH EXAM IS ALERT ORIENTED AND COOPERATIVE IMPRESSION: RETROPERITONEAL HEMATOMA CAUSING PAIN IN HIS PSOAS MUSCLE AND POSSIBLE FEMORAL NERVE COMPRESSION Plan: INR REVERSAL AND IF NOT IMPROVED HE MAY NEED RETROPERITONEAL HEMATOMA DRAINAGE TO RELIEVE POSSIBLE FEMORAL NERVE COMPRESSION / PT CONSULT 06/29/17 23:35 07/01/17 10:51 PT WITH LARGE RETROPERITONEAL HEMATOMA, STABLE/ HCT STABLE THIGH STILL VERY WEAK/ ABLE TO AMBULATE WITH CANE OR WALKER MAY NEED DRAINAGE FOR FEMORAL NERVE COMPRESSION ? 07/01/17 20:27 Patient is followed for retroperitoneal hematoma secondary to anticoagulation/ he is much improved today with much stronger thigh flexion He is walking well with a walker but does have some edema in his thigh Impression: Much improvement but wound unfortunately need to be restarted on his anticoagulation soon because of his artificial valve Objective: Vital Signs Temp Pulse Resp BP Pulse Ox 37.5 C 102 H 16 110/60 95 07/01/17 15:31 07/01/17 15:31 07/01/17 15:31 07/01/17 15:31 07/01/17 15:31 Laboratory Results 07/01/17 16:35 07/01/17 04:18 06/30/17 07/01/17 07/02/17 05:59 05:59 04:59 Intake Total 2650 350 500 Output Total 450 300 Balance 2200 50 500 PT 18.6 SEC (12.0-15.0) H 07/01/17 04:18 INR 1.55 (0.83-1.16) H 07/01/17 04:18 ICD10 Worksheet Patient Problems: Problems Problem Status Onset Left leg weakness Acute Rhabdomyolysis Acute
[2017-07-02 04:52] LABS: INR 1.42 (0.83-1.16); PROTIME(PATIENT) 17.3 SEC (12.0-15.0)
[2017-07-02 07:35] VITALS: BP 122/63; PULSE 79; RESP 17; TEMP 99; O2SAT 92
--- NOTE | 2017-07-02 08:47 | SOAPPROG ---
TAHIRA Progress Note Assessment/Plan: Assessment: 71-YEAR-OLD MALE WITH SPONTANEOUS LEFT ILIACUS RETROPERITONEAL HEMATOMA SECONDARY TO ELEVATED INR / PATIENT ON COUMADIN FOR AORTIC VALVE REPLACEMENT HE WAS SEEN BY HIS PCP AND THOUGHT THAT OF A MUSCLE TEAR EARLIER IN THE WEEK BUT HAS GOTTEN PROGRESSIVELY WEAKER IN HIS LEFT LEG UNTIL LAST NIGHT HE COLLAPSED TRYING TO WALK NO OTHER SIGNS OF INJURY OR NO HISTORY OF TRAUMA EXAM THE HEALTHY 71-YEAR-OLD MALE NO ACUTE DISTRESS HEENT WITHOUT EVIDENCE OF TRAUMA CHEST CLEAR AND SYMMETRIC AND NONTENDER COR REGULAR RHYTHM ABDOMEN SOFT BOWEL SOUNDS BUT A PALPABLE MASS IN THE LEFT LOWER QUADRANT /NO HERNIAS GENITALIA NORMAL EXTREMITIES FULL PULSES AND FULL RANGE OF MOTION FOR ALL EXTREMITIES EXCEPT THE LEFT THIGH WHICH IS WEAK NEURO EXAM IS SYMMETRIC AND PHYSIOLOGIC EXCEPT FOR 4+ OUT OF 5 HIP FLEXOR STRENGTH ON THE LEFT PSYCH EXAM IS ALERT ORIENTED AND COOPERATIVE IMPRESSION: RETROPERITONEAL HEMATOMA CAUSING PAIN IN HIS PSOAS MUSCLE AND POSSIBLE FEMORAL NERVE COMPRESSION Plan: INR REVERSAL AND IF NOT IMPROVED HE MAY NEED RETROPERITONEAL HEMATOMA DRAINAGE TO RELIEVE POSSIBLE FEMORAL NERVE COMPRESSION / PT CONSULT 06/29/17 23:35 07/01/17 10:51 PT WITH LARGE RETROPERITONEAL HEMATOMA, STABLE/ HCT STABLE THIGH STILL VERY WEAK/ ABLE TO AMBULATE WITH CANE OR WALKER MAY NEED DRAINAGE FOR FEMORAL NERVE COMPRESSION ? 07/01/17 20:27 Patient is followed for retroperitoneal hematoma secondary to anticoagulation/ he is much improved today with much stronger thigh flexion He is walking well with a walker but does have some edema in his thigh Impression: Much improvement but wound unfortunately need to be restarted on his anticoagulation soon because of his artificial valve 07/02/17 08:47 AMBULATING BETTER BUT HCT DOWN TO 22/ WILL RECHECK HCT/ CONSIDER FU CT IF REPEAT HCT STILL LOW/ ABD SOFT AND NONTENDER/ AFEBRILE/ THIGH STRENGTH BETTER 07/02/17 14:08 Objective: Vital Signs Temp Pulse Resp BP Pulse Ox 37.2 C 79 17 122/63 H 92 07/02/17 07:33 07/02/17 07:33 07/02/17 07:33 07/02/17 07:33 07/02/17 07:33 Laboratory Results 07/02/17 04:20 07/02/17 04:20 07/01/17 07/02/17 07/03/17 06:59 05:59 05:59 Intake Total Output Total Balance PT 17.3 SEC (12.0-15.0) H 07/02/17 04:20 INR 1.42 (0.83-1.16) H 07/02/17 04:20 ICD10 Worksheet Patient Problems: Problems Problem Status Onset Left leg weakness Acute Rhabdomyolysis Acute
--- NOTE | 2017-07-02 09:31 | HOSPPROG ---
Hospitalist Progress Note Assessment/Plan: Assessment: 71 yo M with hx [facility] valve on chronic anticoagulation a/w LLE weakness due to acute left iliacus hematoma and suspected femoral nerve compression Plan: #left iliacus and retroperitoneal hematoma with displacement of psoas. Likely spontaneous in setting of supratherapeutic INR. Hgb 10.8 --> 7.9 in past 12 hrs. - s/p FFP, INR reversed safely- currently 1.4 - stat CT angio abd/pelvis to evaluate for active bleeding and/or increased size of hematoma - monitor daily INR, cont to hold coumadin - surgery following, may require intervention #chronic anticoagulation for mechanical AVR - d/w Dr. Bullard, recommends patient be off anticoagulation for 3-6 days and begin receiving ASA in the interim when patient's bleeding is definitively stabilized - need to continue to hold AC with dropping H&H #acute blood loss anemia. Hgb 11.4->7.9. Hemodynamically stable, holding on transfusion at this time - continue to follow H&H q6h, transfuse if next hgb continues to drop #LLE weakness likely 2/2 L femoral nerve compression in setting of hematoma. MRI back w/o spinal canal bleed. CTA head/neck w/o stenosis. Spinal stenosis of L4-5 noted. - monitor paresis LLE, cont PT - outpt neurosurgery f/u if weakness persists in setting of spinal stenosis #rhabdomyolysis. acute, 2/2 falls and hematoma, cont to monitor #HLD. chronic, holding statin in setting of rhabdo. #spinal stenosis. nsgy consult appreciated, no cord compression Diet. Regular PPx. High risk, SCDs Code. Full, desires friend Nancy Long to act as proxy if needed Dispo. Cont inpt Objective: Vital Signs Temp Pulse Resp BP Pulse Ox 37.2 C 79 17 122/63 H 92 07/02/17 07:33 07/02/17 07:33 07/02/17 07:33 07/02/17 07:33 07/02/17 07:33 Laboratory Results 07/02/17 04:20 07/02/17 04:20 07/01/17 07/02/17 07/03/17 06:59 05:59 05:59 Intake Total Output Total Balance PT 17.3 SEC (12.0-15.0) H 07/02/17 04:20 INR 1.42 (0.83-1.16) H 07/02/17 04:20 ICD10 Worksheet Patient Problems: Problems Problem Status Onset Left leg weakness Acute Rhabdomyolysis Acute
[2017-07-02 10:08] LABS: PLATELET COUNT 205 10^3/uL (150-400)
[2017-07-02] MEDS ORDERED: IOPAMIDOL (ISOVUE 370) 100 ML BTL IV ONE ×2 (10:09)
--- NOTE | 2017-07-02 14:55 | PDIAF ---
- Diagnosis Diagnosis: left iliacus and retroperitonal hematoma - Medication Management Discharge Medications: Medications to Continue on Transfer ALPRAZolam [Xanax 1 MG (*)] 1 mg PO HS PRN 06/29/17 [Last Taken 06/28/17] Herbals/Supplements -Info Only 1 ea PO DAILY 06/29/17 [Last Taken Unknown] Simvastatin [Zocor] 20 mg PO HS 06/29/17 [Last Taken 06/28/17] Tramadol HCl 50 mg PO Q6 PRN 06/29/17 [Last Taken 06/28/17] Discharge Medications: Refer to the Discharge Home Medication list for PRN reason. PICC Care - Routine: N/A - Orders Services needed: Home Care, Registered Nurse, Certified Ladle Car Operator, Physical Therapy, Occupational Therapy Home Care Face to Face: I certify that this patient was under my care and that I had the required [id number] encounter meeting the encounter requirements on the discharge day. My findings support the fact that the patient is homebound as defined in Home Care Face to Face Continued: CMS Chapter 7 Medicare Benefits Manual 30.1.1 , The condition of the patient is such that there exists a normal inability to leave home and consequently, leaving home would require a considerable and taxing effort. Diet Recommendation: no restrictions on diet Activity/Weight Bearing Restrictions: Use your walker at all times for safety and stability - Follow Up Care Current Providers and Referrals: Toni Pham MD [Primary Care Provider] - As per Instructions Frantz Bullard MD [Medical Doctor] -
--- NOTE | 2017-07-02 14:55 | PDIAF ---
- Diagnosis Diagnosis: left iliacus and retroperitonal hematoma - Medication Management Discharge Medications: Medications to Continue on Transfer ALPRAZolam [Xanax 1 MG (*)] 1 mg PO HS PRN 06/29/17 [Last Taken 06/28/17] Herbals/Supplements -Info Only 1 ea PO DAILY 06/29/17 [Last Taken Unknown] Simvastatin [Zocor] 20 mg PO HS 06/29/17 [Last Taken 06/28/17] Tramadol HCl 50 mg PO Q6 PRN 06/29/17 [Last Taken 06/28/17] Discharge Medications: Refer to the Discharge Home Medication list for PRN reason. PICC Care - Routine: N/A - Orders Services needed: Home Care, Registered Nurse, Certified Computer Application Developer, Physical Therapy, Occupational Therapy Home Care Face to Face: I certify that this patient was under my care and that I had the required [id number] encounter meeting the encounter requirements on the discharge day. My findings support the fact that the patient is homebound as defined in Home Care Face to Face Continued: CMS Chapter 7 Medicare Benefits Manual 30.1.1 , The condition of the patient is such that there exists a normal inability to leave home and consequently, leaving home would require a considerable and taxing effort. Diet Recommendation: no restrictions on diet Activity/Weight Bearing Restrictions: Use your walker at all times for safety and stability - Follow Up Care Current Providers and Referrals: Toni Pham MD [Primary Care Provider] - As per Instructions Frantz uBllard MD [Medical Doctor] -
--- NOTE | 2017-07-02 15:04 | ASMTCMCOM ---
CM Note CM Note Notes: Pt to DC home today with [facility] home care. He will have RN/PT/OT/GRID OPERATOR. Pt has refused SNF and MD, PT and RN have made it clear that pt is at risk of falling in the home. He has a loan closet list and told PT he would get a walker on the way home. [facility] advised to help pt get a lifeline. [facility] also knows that pt has 30 days in which he could still go to a SNF if they and/or pt felt it was needed. RN left report at [phone]. Date Signed: 07/02/2017 03:04 PM Electronically Signed By:Stephanie Luna LCSW
--- NOTE | 2017-07-02 15:04 | ASMTCMCOM ---
CM Note CM Note Notes: Pt to DC home today with [facility] home care. He will have RN/PT/OT/AMMONIUM NITRATE NEUTRALIZER. Pt has refused SNF and MD, PT and RN have made it clear that pt is at risk of falling in the home. He has a loan closet list and told PT he would get a walker on the way home. [facility] advised to help pt get a lifeline. [facility] also knows that pt has 30 days in which he could still go to a SNF if they and/or pt felt it was needed. RN left report at [phone]. Date Signed: 07/02/2017 03:04 PM Electronically Signed By:Stephanie Luna LCSW
--- NOTE | 2017-07-02 15:04 | ASMTCMCOM ---
CM Note CM Note Notes: Pt to DC home today with [facility] home care. He will have RN/PT/OT/CAR MANAGER. Pt has refused SNF and MD, PT and RN have made it clear that pt is at risk of falling in the home. He has a loan closet list and told PT he would get a walker on the way home. [facility] advised to help pt get a lifeline. [facility] also knows that pt has 30 days in which he could still go to a SNF if they and/or pt felt it was needed. RN left report at [phone]. Date Signed: 07/02/2017 03:04 PM Electronically Signed By:Stephanie Luna LCSW
--- NOTE | 2017-07-02 20:07 | GDS ---
[f rep st] DISCHARGE SUMMARY DISCHARGE DIAGNOSES: 1. Left iliac and retroperitoneal hematoma with displacement of the psoas muscle. 2. Left lower extremity weakness, resulting in a fall, secondary to femoral nerve compression in the setting of above hematoma, improved. 3. Chronic anticoagulation for mechanical aortic valve replacement, with a supratherapeutic INR, pre senting with an acute bleeding event requiring INR reversal. 4. Acute blood loss anemia. 5. Rhabdomyolysis secondary to fall and hematoma, improved. 6. Hyperlipidemia. 7. Spinal stenosis. CONSULTANTS: 1. MARC Alaniz, from the neurosurgery service. 2. Dr. Jc Bojorquez, general surgery. HISTORY: For details, please see the History and Physical dated June 29, 2017. In brief, the cheng hart is a 71-year-old male with a history of mechanical aortic valve replacement, on chronic anticoag ulation, who presented to the emergency department after a fall due to left lower extremity weakness. Two days prior to arrival, he was diagnosed with a muscle strain and hematoma of his left leg in th e setting of an INR greater than 5. CT angiography of the abdomen and pelvis in the emergency depart ment confirmed a large left iliacus hematoma with free fluid in the pelvis consistent with hemoperito neum. Although his INR was reported to be greater than 5 in the outpatient setting 2 days ago, on ad mission, his INR was 2.86. He was admitted to the hospital for further management. HOSPITAL COURSE: On admission, the patient required reversal of his INR with FFP. His hemoglobin wa s followed closely and he did not require transfusion. He remained hemodynamically stable. His left lower extremity weakness was thought to be secondary to femoral nerve compression in the setting of left iliacus hematoma with displacement of the psoas muscle. His symptoms improved significantly wit h therapy, with improved proximal muscle strength at the time of discharge. He was able to safely am bulate with a walker. His rhabdomyolysis was treated with IV fluids and improved. He had no further evidence of active bleeding during the hospital course. His hemoglobin remained stable around 9 for over 48 hours prior to discharge. Given his mobility impairment in the setting of his large hematoma with left lower extremity weakness , care home facility rehab was recommended; however, the patient adamantly refused this, and wi shed to instead discharge home. He does agree to home health care services and I have ordered RN, PT /OT, and a certified nursing assistant instructor for as much support as possible. I discussed with the patient the risk of an other fall leading to potentially life-threatening bleeding. He assumes this risk and adamantly refu ses care home rehab. Regarding his anticoagulation, I discussed the case Dr. Frantz Bullard, his planning manager. It is rec ommended he be off all anticoagulation and blood thinners for a total of 7 days, which is through Jun. At that point, consideration will be given to resuming aspirin. If he does well on this for a period of time, then he and Dr. Bullard can consider if it is safe to resume anticoagulation i n the setting of his mechanical valve. Fortunately, he had no chest pain, shortness of breath, cardi ovascular or respiratory symptoms off anticoagulation. His INR at time of discharge is 1.4. Coumadi n is discontinued at this time. DISPOSITION: Patient is discharged home with full home health services. FOLLOWUP: 1. Dr. Frantz Bullard, cardiology, in 2-3 days to discuss resumption of aspirin therapy. 2. Dr. Toni Pham, primary care. DISCHARGE MEDICATIONS: Please see [facility] [facility] for completed outpatient medication list. There are no new medications on discharge. Discontinued medications include warfarin. /[id number]/MODL
--- NOTE | 2017-07-02 20:07 | GDS ---
[f rep st] DISCHARGE SUMMARY DISCHARGE DIAGNOSES: 1. Left iliac and retroperitoneal hematoma with displacement of the psoas muscle. 2. Left lower extremity weakness, resulting in a fall, secondary to femoral nerve compression in the setting of above hematoma, improved. 3. Chronic anticoagulation for mechanical aortic valve replacement, with a supratherapeutic INR, pre senting with an acute bleeding event requiring INR reversal. 4. Acute blood loss anemia. 5. Rhabdomyolysis secondary to fall and hematoma, improved. 6. Hyperlipidemia. 7. Spinal stenosis. CONSULTANTS: 1. MARC Alaniz, from the neurosurgery service. 2. Dr. Jc Bojorquez, general surgery. HISTORY: For details, please see the History and Physical dated June 29, 2017. In brief, the cheng hart is a 71-year-old male with a history of mechanical aortic valve replacement, on chronic anticoag ulation, who presented to the emergency department after a fall due to left lower extremity weakness. Two days prior to arrival, he was diagnosed with a muscle strain and hematoma of his left leg in th e setting of an INR greater than 5. CT angiography of the abdomen and pelvis in the emergency depart ment confirmed a large left iliacus hematoma with free fluid in the pelvis consistent with hemoperito neum. Although his INR was reported to be greater than 5 in the outpatient setting 2 days ago, on ad mission, his INR was 2.86. He was admitted to the hospital for further management. HOSPITAL COURSE: On admission, the patient required reversal of his INR with FFP. His hemoglobin wa s followed closely and he did not require transfusion. He remained hemodynamically stable. His left lower extremity weakness was thought to be secondary to femoral nerve compression in the setting of left iliacus hematoma with displacement of the psoas muscle. His symptoms improved significantly wit h therapy, with improved proximal muscle strength at the time of discharge. He was able to safely am bulate with a walker. His rhabdomyolysis was treated with IV fluids and improved. He had no further evidence of active bleeding during the hospital course. His hemoglobin remained stable around 9 for over 48 hours prior to discharge. Given his mobility impairment in the setting of his large hematoma with left lower extremity weakness , [facility]pc facility rehab was recommended; however, the patient adamantly refused this, and wi shed to instead discharge home. He does agree to home health care services and I have ordered RN, PT /OT, and a nursing education specialist for as much support as possible. I discussed with the patient the risk of an other fall leading to potentially life-threatening bleeding. He assumes this risk and adamantly refu ses fpc rehab. Regarding his anticoagulation, I discussed the case Dr. Frantz Bullard, his lumber grader. It is rec ommended he be off all anticoagulation and blood thinners for a total of 7 days, which is through Jun. At that point, consideration will be given to resuming aspirin. If he does well on this for a period of time, then he and Dr. Bullard can consider if it is safe to resume anticoagulation i n the setting of his mechanical valve. Fortunately, he had no chest pain, shortness of breath, cardi ovascular or respiratory symptoms off anticoagulation. His INR at time of discharge is 1.4. Coumadi n is discontinued at this time. DISPOSITION: Patient is discharged home with full home health services. FOLLOWUP: 1. Dr. Frantz Bullard, cardiology, in 2-3 days to discuss resumption of aspirin therapy. 2. Dr. Toni Pham, primary care. DISCHARGE MEDICATIONS: Please see [facility] for completed outpatient medication list. There are no new medications on discharge. Discontinued medications include warfarin. /[id number]/MODL
--- NOTE | 2017-07-02 20:07 | GDS ---
[f rep st] DISCHARGE SUMMARY DISCHARGE DIAGNOSES: 1. Left iliac and retroperitoneal hematoma with displacement of the psoas muscle. 2. Left lower extremity weakness, resulting in a fall, secondary to femoral nerve compression in the setting of above hematoma, improved. 3. Chronic anticoagulation for mechanical aortic valve replacement, with a supratherapeutic INR, pre senting with an acute bleeding event requiring INR reversal. 4. Acute blood loss anemia. 5. Rhabdomyolysis secondary to fall and hematoma, improved. 6. Hyperlipidemia. 7. Spinal stenosis. CONSULTANTS: 1. MARC Alaniz, from the neurosurgery service. 2. Dr. Jc Bojorquez, general surgery. HISTORY: For details, please see the History and Physical dated June 29, 2017. In brief, the cheng hart is a 71-year-old male with a history of mechanical aortic valve replacement, on chronic anticoag ulation, who presented to the emergency department after a fall due to left lower extremity weakness. Two days prior to arrival, he was diagnosed with a muscle strain and hematoma of his left leg in th e setting of an INR greater than 5. CT angiography of the abdomen and pelvis in the emergency depart ment confirmed a large left iliacus hematoma with free fluid in the pelvis consistent with hemoperito neum. Although his INR was reported to be greater than 5 in the outpatient setting 2 days ago, on ad mission, his INR was 2.86. He was admitted to the hospital for further management. HOSPITAL COURSE: On admission, the patient required reversal of his INR with [facility]. His hemoglobin wa s followed closely and he did not require transfusion. He remained hemodynamically stable. His left lower extremity weakness was thought to be secondary to femoral nerve compression in the setting of left iliacus hematoma with displacement of the psoas muscle. His symptoms improved significantly wit h therapy, with improved proximal muscle strength at the time of discharge. He was able to safely am bulate with a walker. His rhabdomyolysis was treated with IV fluids and improved. He had no further evidence of active bleeding during the hospital course. His hemoglobin remained stable around 9 for over 48 hours prior to discharge. Given his mobility impairment in the setting of his large hematoma with left lower extremity weakness , correction facility rehab was recommended; however, the patient adamantly refused this, and wi shed to instead discharge home. He does agree to home health care services and I have ordered RN, PT /OT, and a nursing teacher for as much support as possible. I discussed with the patient the risk of an other fall leading to potentially life-threatening bleeding. He assumes this risk and adamantly refu ses correction rehab. Regarding his anticoagulation, I discussed the case Dr. Frantz Bullard, his clinical tech. It is rec ommended he be off all anticoagulation and blood thinners for a total of 7 days, which is through Jun. At that point, consideration will be given to resuming aspirin. If he does well on this for a period of time, then he and Dr. Bullard can consider if it is safe to resume anticoagulation i n the setting of his mechanical valve. Fortunately, he had no chest pain, shortness of breath, cardi ovascular or respiratory symptoms off anticoagulation. His INR at time of discharge is 1.4. Coumadi n is discontinued at this time. DISPOSITION: Patient is discharged home with full home health services. FOLLOWUP: 1. Dr. Frantz Bullard, cardiology, in 2-3 days to discuss resumption of aspirin therapy. 2. Dr. Toni Pham, primary care. DISCHARGE MEDICATIONS: Please see [facility] for completed outpatient medication list. There are no new medications on discharge. Discontinued medications include warfarin. /[id number]/MODL
== END 2017-07-02 15:18 | disposition home health service (06) | DRG 813 ==
LOC: F3N 22:24
PROVIDERS: ADMIT Hospitalist; ATTEND Hospitalist
PROC: 30233K1 Transfusion of Nonautologous Frozen Plasma into Peripheral Vein, Percutaneous Approach (ICD-10-PCS; principal; 2017-06-29)
DX: D68.4 Acquired coagulation factor deficiency (principal); T45.515A Adverse effect of anticoagulants, initial encounter; K66.1 Hemoperitoneum; D62 Acute posthemorrhagic anemia; G57.82 Other specified mononeuropathies of left lower limb; T79.6XXA Traumatic ischemia of muscle, initial encounter; W19.XXXA Unspecified fall, initial encounter; G47.00 Insomnia, unspecified; Z95.2 Presence of prosthetic heart valve; Z79.01 Long term (current) use of anticoagulants
CPT/HCPCS: 97116-GP; 97161-GP; 97166-GO; 97535-GO; G8978-GP-CI; G8978-GP-CK; G8979-GP-CI; G8980-GP-CI; G8987-GO-CK; G8988-GO-CI; P9016; P9017; Q9967

== ENCOUNTER → 2018-11-12 | Outpatient (CLI) | payer OTHER, MEDICARE ==
[~2018-11-12] MED LIST: GADOBUTROL 10 ML VIAL IVP ONE
== END ==
LOC: FIMAGING 12:30
PROVIDERS: ATTEND Otolaryngology
DX: H91.22 Sudden idiopathic hearing loss, left ear (principal)
CPT/HCPCS: 70553; A9585; 82565-PO

== ENCOUNTER → 2019-02-05 | Outpatient (CLI) | payer OTHER, MEDICARE | LOC: FIMAGING 06:35 ==